=== PATIENT | female | born 1995 | race Caucasian/White ===

== ENCOUNTER → 2017-06-13 | Outpatient (CLI) | payer BC | LOC: LAB 08:27 | DX: R42 Dizziness and giddiness (principal); R13.10 Dysphagia, unspecified; R63.8 Other symptoms and signs concerning food and fluid intake; E01.0 Iodine-deficiency related diffuse (endemic) goiter; R53.83 Other fatigue ==

== ENCOUNTER → 2017-06-16 | Outpatient (CLI) | payer BC | LOC: RAD 15:15 | DX: R53.83 Other fatigue (principal); E04.9 Nontoxic goiter, unspecified ==

== ENCOUNTER → 2017-11-07 | Outpatient (CLI) | payer BC ==
[2017-11-07 21:40] LABS: CLUE CELLS PRESENT (Not Observd)
== END ==
LOC: LAB 16:58
PROVIDERS: Family Medicine
DX: N92.1 Excessive and frequent menstruation with irregular cycle (principal)
CPT/HCPCS: Q0111

== ENCOUNTER → 2018-09-28 | Outpatient (CLI) | payer OTHER, BC | LOC: LAB 10:28 | DX: O03.9 Complete or unspecified spontaneous abortion without complication (principal) ==

== ENCOUNTER → 2018-10-05 | Outpatient (CLI) | payer OTHER, BC | LOC: LAB 09:34 | DX: O20.9 Hemorrhage in early pregnancy, unspecified (principal) ==

== ENCOUNTER 2019-11-04 20:33 | Emergency (ER) | payer BC ==
[~2019-11-04] VITALS: Ht 162.6 cm; Wt 61.4 kg
[2019-11-04] MEDS ORDERED: BIRTH CONTROL PO (21:32)
[2019-11-04] MEDS ORDERED: SERTRALINE50 MG PO (21:32)
[2019-11-04] MEDS ORDERED: PNV 29-1 TABLE1 EACH PO (21:33)
[2019-11-04 21:56] LABS: HEMATOCRIT 47.5 % (37.0-47.0); HEMOGLOBIN 15.2 g/dL (12.5-16.0); MEAN CELL VOLUME 94 fl (78-100); MEAN CORPUSCULAR HEMOGLOBIN 30 pg (27-31); MEAN CORPUSCULAR HGB CONC 32 g/dL (33-37); MEAN PLATELET VOLUME 10.2 fl (7.4-10.4); PLATELET COUNT 367 K/mm3 (130-400); RED BLOOD COUNT 5.06 M/mm3 (4.10-5.30); RED CELL DISTRIBUTION WIDTH 13.5 % (11.5-14.5); WHITE BLOOD COUNT 18.7 K/mm3 (4.8-10.8)
[2019-11-04 22:02] LABS: LYMPHOCYTE 9 % (20-51); MONOCYTE 8 % (3-10); NEUTROPHILS 80 % (42-75)
[2019-11-04 22:06] LABS: ALBUMIN 4.9 g/dL (3.5-5.0)
[2019-11-04 22:07] LABS: POTASSIUM 3.9 mmol/L (3.5-5.1)
[2019-11-04 22:08] LABS: CALCIUM 10.7 mg/dL (8.3-10.5)
[2019-11-04 22:09] LABS: TOTAL PROTEIN 7.9 g/dL (6.4-8.3)
[2019-11-04 22:11] LABS: TOTAL BILIRUBIN 0.7 mg/dL (0.2-1.2)
[2019-11-05 00:23] LABS: URINE APPEARANCE HAZY; URINE COLOR YELLOW
[2019-11-05 00:25] LABS: URINE BILIRUBIN NEGATIVE (NEGATIVE); URINE BLOOD NEGATIVE (NEGATIVE); URINE GLUCOSE NEGATIVE (NEGATIVE); URINE KETONE 1+ (NEGATIVE); URINE LEUKOCYTE ESTERASE NEGATIVE (NEGATIVE); URINE MUCUS PRESENT (NOT PRESENT); URINE NITRATE NEGATIVE (NEGATIVE); URINE PROTEIN(semi-quant) TRACE mg/dL (NEGATIVE); URINE UROBILINOGEN NORMAL (NORMAL); URINE WBC 0-1 /hpf (0-3)
[2019-11-05 01:32] VITALS: BP 113/64
== END 2019-11-05 01:32 | disposition home or self-care (01) ==
LOC: ED 20:33
PROVIDERS: Nurse Practitioner Family
DX: K52.9 Noninfective gastroenteritis and colitis, unspecified (principal); E86.0 Dehydration; F32.9 Major depressive disorder, single episode, unspecified
CPT/HCPCS: J2405; J7030; Q9967